=== PATIENT | female | born 1995 | race Caucasian/White ===

== ENCOUNTER 2020-06-28 15:58 | Emergency (ER) | payer OTHER ==
[2020-06-28 16:33] LABS: RAPID STREP SCREEN Negative (Negative)
[2020-06-28] MEDS ORDERED: IBUPROFEN 800 MG TABLET PO STA (17:33)
[2020-06-28] MEDS ORDERED: DEXAMETHASONE 10 MG/ML VIAL PO STA (17:33)
[2020-06-28] MEDS ORDERED: CHERRY SYRUP 10 ML UDC PO ONE (17:33)
--- NOTE | 2020-06-28 17:35 | ED Physician Documentation ---
History of Present Illness - Stated complaint Stated Complaint: SORE/SWOLLEN THROAT - Chief complaint Chief Complaint: Heent - History obtained from History obtained from: Patient - History of Present Illness Timing: How many days ago (2) Pain level max: 5 Pain level now: 4 - Additonal information Additional information: 25-year-old female presents to the emergency department complaining of fever, sore throat and mild cough for the past 2 days. Worse with swallowing, better with rest. Nonproductive cough. She is not . Patient states that her right ear is hurting as well. 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 - Present Medications Home Medications: Ambulatory Orders Medication Instructions Recorded Confirmed Control Pill 1 tab ORAL DAILY 04/01/14 04/22/14 Hydrocodone/Acetaminophen 1 each PO Q6H PRN #15 tablet 04/22/14 [Hydrocodon-Acetaminophen 5-325] Ibuprofen 600 mg PO TID #30 tablet 04/22/14 - Allergies Allergies/Adverse Reactions: Allergies Allergy/AdvReac Type Severity Reaction Status Date / Time No Known Drug Allergies Allergy Verified 04/01/14 14:04 - Social History Does the pt smoke?: No Smoking Status: Never smoker Does the pt drink ETOH?: No Does the pt have substance abuse?: No - Immunizations Immunizations are current?: Yes - POLST Patient has POLST: No PD ED PE NORMAL - Vitals Vital signs reviewed: Yes - General General: Alert and oriented X 3, No acute distress, Well developed/nourished - HEENT HEENT: PERRL, Ears normal, Moist mucous membranes, Pharynx benign - Neck Neck: Supple, no meningeal sign, No adenopathy - Cardiac Cardiac: RRR, Strong equal pulses - Respiratory Respiratory: No respiratory distress, Clear bilaterally - Abdomen Abdomen: Soft, Non tender, Non distended - Derm Derm: Warm and dry, No rash - Extremities Extremities: No edema, No calf tenderness / cord - Neuro Neuro: Alert and oriented X 3 - Psych Psych: Normal mood, Normal affect Results - Vitals Vitals: Vital Signs - 24 hr 06/28/20 06/28/20 16:13 17:53 Temperature 38.3 C H 38.3 C H Heart Rate 93 78 Respiratory 18 18 Rate Blood Pressure 135/91 H 153/90 H O2 Saturation 100 100 Oxygen O2 Source Room air - Labs Labs: Laboratory Tests 06/28/20 16:20 Group A Strep Rapid Negative PD MEDICAL DECISION MAKING - ED course Complexity details: reviewed results, considered differential, d/w patient ED course: Patient is well-appearing, nontoxic. Mild fever here. Tolerating p.o. without difficulty. Negative rapid strep. Covid testing performed. Patient counseled regarding signs and symptoms for which I believe and urgent re-evaluation would be necessary. Patient with good understanding of and agreement to plan and is comfortable going home at this time This document was made in part using voice recognition software. While efforts are made to proofread this document, sound alike and grammatical errors may occur. Departure - Departure Disposition: 01 Home, Self Care Clinical Impression: Viral pharyngitis Condition: Good Instructions: ED Pharyngitis Viral Follow-Up: JENNIFER Hua [Provider Group] - Within 1 week Comments: Go home and rest. Return if you worsen. Follow-up with your doctor for further care. Drink plenty of fluids. You have a Covid test pending. You need to self quarantine until the result is done and negative. Do not leave your house. Do not get near anybody. The results should be done in 48 to 72 hours. We will call with a positive result, the fastest way to get a negative result for confirmation though is to go to the hospital website at [email or web address], click [facility] the my [facility] tab and sign up for the patient portal. If any friends or family get sick and would like to have a Covid test done, but do not have signs or symptoms that would necessitate being hospitalized, we encourage testing through our coronavirus swabbing station, call [phone] to schedule an appointment. Forms: Activity restrictions Discharge Date/Time: 06/28/20 17:53
[2020-06-28 17:54] VITALS: BP 153/90
== END 2020-06-28 17:53 | disposition home or self-care (01) ==
LOC: ED 15:58
DX: J02.8 Acute pharyngitis due to other specified organisms (principal); B97.89 Other viral agents as the cause of diseases classified elsewhere; Z20.828 Contact with and (suspected) exposure to other viral communicable diseases
CPT/HCPCS: 87070; 87077; 87430; 87635; 99283; 99284; A9270

== ENCOUNTER 2023-01-12 09:22 | Outpatient (CLI) | payer OTHER | END 2023-01-12 09:23 | disposition home or self-care (01) | LOC: DI 09:22 | PROVIDERS: ATTEND Student in an Organized Health Care Education/Training Program | DX: I10 Essential (primary) hypertension (principal); I44.0 Atrioventricular block, first degree | CPT/HCPCS: 93306 ==